=== PATIENT | male | born 1975 | race Caucasian/White ===

== ENCOUNTER 2017-01-13 22:03 | Emergency (ER) | payer MEDICAID ==
--- NOTE | 2017-01-14 01:09 | ERNOTE ---
Time Seen by Provider: 01/14/17 00:59 Stated Complaint: URI SYMPTOMS Presenting Symptoms:: cough Source: patient, RN notes reviewed Exam Limitations: no limitations Immunizations: IMMUNIZATION HX Immunizations Up to Date Yes Allergies/Adverse Reactions: Allergies Penicillins Allergy (Verified 01/13/17 22:18) Home Medications: HOME MEDICATIONS Azithromycin [Zithromax] 500 mg PO DAILY #5 tab 01/14/17 [Last Taken Unknown] predniSONE [Prednisone] 3 tab PO DAILY #9 tab 01/14/17 [Last Taken Unknown] - History of Present Ilness Narrative: Patient states that he has coughed since his last illness last spring. He smokes a pack a day. His is here with a fever and upper respiratory illness , he thought he felt feverish, but did not check. He also complains of a sore throat. Timing: intermittent Severity: moderate Frequency/Possible Cause: Reports: chronic episodes, smoke exposure Modifying Factors - Improves: Reports: nothing Modifying Factors - Worsens: Reports: coughing, deep breath Associated Symptoms: Reports: cough, sore throat, muscle aches, fever/chills Review of Systems - Review of Systems Constitutional: Present: recent illness, fever EYE: Present: no symptoms reported ENT: Present: sore throat. Absent: ear pain Respiratory: Present: cough. Absent: shortness of breath, orthopnea, wheezing Cardiology: Absent: chest pain, palpitations Gastrointestinal/Abdominal: Absent: nausea, vomiting, diarrhea, constipation, abdominal pain Genitourinary: Present: no symptoms reported Musculoskeletal: Absent: back pain, muscle pain, muscle stiffness, neck pain, joint pain Skin: Present: no symptoms reported Neurological: Present: no symptoms reported Endocrine: Present: no symptoms reported - Patient's Past Medical History Patient History - Medical: No pertinent hx - Family History Mother Family History - Cardiac/Respiratory: Hypertension - Social History Living Situations: home Psych History: No pertinent hx Smoking Status: Current every day smoker - Immunizations Immunizations Up to Date: Yes Physical Exam - Physical Exam General Appearance: Present: wd/wn, alert, no apparent distress Head Exam: Present: normal inspection, no evidence of injury Eye Exam: Normal inspection: bilateral, PERRL: bilateral, EOMI: bilateral Ears, Nose, Throat: Present: normal ENT inspection, normal pharynx Neck: Present: normal inspection, nontender Respiratory: Present: no respiratory distress, normal breath sounds, no accessory muscle use, chest nontender, lungs clear Cardiovascular/Chest: Present: regular rate, rhythm, no murmur Gastrointestinal/Abdominal: Present: normal bowel sounds, nontender, nondistended, soft Back Exam: Present: normal inspection, normal range of motion Extremity Exam: Present: normal inspection, non-tender, normal range of motion, no edema, other - right arm amputation below shoulder Neurological Exam: Present: alert, oriented, normal mood/affect, no motor/ sensory deficits Skin Exam: Present: normal color, warm/dry ED Progress - Vital Signs Patient's Vital Signs:: I have reviewed the patient's vital signs. Vital Signs: Vital Signs 01/13/17 22:14 Temperature 36.7 C Pulse Rate 78 Respiratory 20 Rate Blood Pressure 153/86 O2 Sat by Pulse 98 Oximetry - Progress/Reassessment Chief Complaint: Cough Progress:: Unchanged Progress Note-Subjective: 01/14/17 06:16 Azithromycin 500 mg PO Departure Clinical Impression: Bronchitis, chronic Qualifiers: Chronic bronchitis type: simple Qualified Code(s): J41.0 - Simple chronic bronchitis - Departure Disposition: Home self-care Condition: Good Instructions: Bronchospasm, Adult, Chronic Bronchitis Referrals: Family Practice [Provider Group] (7-10 days, sooner if you worsen) Prescriptions: Azithromycin [Zithromax] 500 mg PO DAILY #5 tab predniSONE [Prednisone] 3 tab PO DAILY #9 tab
[2017-01-14] MEDS ORDERED: AZITHROMYCIN 250 MG TABLET PO ONE (01:30)
[2017-01-14] MEDS ORDERED: AZITHROMYCIN 250 MG TABLET ONE (01:33)
[2017-01-14 02:48] VITALS: BP 146/98
== END 2017-01-14 02:46 | disposition home or self-care (01) ==
LOC: ER 22:03
DX: J41.0 Simple chronic bronchitis (principal); F17.200 Nicotine dependence, unspecified, uncomplicated